=== PATIENT | female | born 1950 | race Caucasian/White ===

== ENCOUNTER 2017-12-25 18:07 | Emergency (ER) | payer OTHER ==
[2017-12-25] MEDS: FAMOTIDINE 20 MG TAB PO (19:30)
[2017-12-25] MEDS: DIPHENHYDRAMINE 25 MG CAP PO (19:30)
[2017-12-25] MEDS: METHYLPREDNISOLONE 125 MG INJ IM (19:31)
== END 2017-12-25 20:37 | disposition home or self-care (01) ==
LOC: FTE 18:07
DX: L50.9 Urticaria, unspecified (principal); I10 Essential (primary) hypertension
CPT/HCPCS: 96372; 99284-25